=== PATIENT | male | born 1950 | race Caucasian/White ===

== ENCOUNTER 2024-09-11 15:00 | Outpatient (RCR) | payer MEDICARE, BC, SELFPAY | END 2024-09-12 07:52 | disposition home or self-care (01) | PROVIDERS: PCP Student in an Organized Health Care Education/Training Program; Visit Provider Student in an Organized Health Care Education/Training Program | DX: R41.89 Other symptoms and signs involving cognitive functions and awareness (principal); I63.9 Cerebral infarction, unspecified; R49.9 Unspecified voice and resonance disorder; Z91.89 Other specified personal risk factors, not elsewhere classified; Z51.89 Encounter for other specified aftercare | CPT/HCPCS: 92507; 96125; 97129; 97130; 97165; 97535 ==